=== PATIENT | female | born 1965 ===

== ENCOUNTER 2023-12-17 06:06 | Outpatient (REF) | payer OTHER, SELFPAY ==
--- NOTE | ~2023-12-17 | US_ITS ---
EXAMINATION: US PELVIS CLINICAL INFORMATION: Postmenopausal bleeding. COMPARISON: None available. TECHNIQUE: Ultrasound of the pelvis is performed using both transabdominal and transvaginal transducers along with Doppler. Transvaginal imaging is performed due to inadequate visualization transabdominally. Limited visualization due to bowel gas and body habitus. FINDINGS: The uterus is anteverted and measures 7.4 x 3.2 x 4.1 cm. No discrete fibroids appreciated. Endometrium difficult to visualize due to uterine heterogeneity, but imaged segment of endometrium demonstrates thickness of 2 mm. No significant free fluid. Right ovary measures 1.6 x 0.7 x 1.5 cm, volume 0.9 mL and left ovary 1.3 x 1.3 x 1.8 cm, volume 1.6 mL. Bilateral ovaries are grossly unremarkable, although visualization is limited due to bowel gas. US/US pelvic and transvaginal IMPRESSION: Endometrial thickness of 2 mm, however, visualization limited due to bowel gas. This study was presented today December 17, 2023 for interpretation. STAT results provided at this time as requested by referring provider.
== END 2023-12-17 06:07 | disposition home or self-care (01) ==
LOC: HO.UMASIMG 06:06
PROVIDERS: Visit Provider Family Medicine
DX: N95.0 Postmenopausal bleeding (principal)
CPT/HCPCS: 76830; 76856